=== PATIENT | female | born 1975 | race Two or more races ===

== ENCOUNTER 2024-12-27 07:00 | Day surgery (SDC) | payer OTHER ==
[2024-12-27] MEDS ORDERED: DIPHENHYDRAMINE HCL 50 MG/ML VIAL 1ML IV ONE (14:00)
[2024-12-27] MEDS ORDERED: MIDAZOLAM HCL 2 MG/2 ML VIAL IV ONE (14:00)
[2024-12-27] MEDS ORDERED: fentaNYL CITRATE 50 MCG/ML AMPUL IV PUSH ONE (14:00)
== END 2024-12-27 14:10 | disposition home or self-care (01) ==
LOC: CIR.AMB 07:00
PROVIDERS: ATTEND Colon & Rectal Surgery
DX: C20 Malignant neoplasm of rectum (principal); Z86.0100 Personal history of colon polyps, unspecified